=== PATIENT | female | born 1985 | race American Indian/Alaskan Native ===

== ENCOUNTER 2023-10-07 05:55 | Day surgery (SDC) | payer OTHER ==
[~2023-10-07] VITALS: Ht 170.2 cm; Wt 101.6 kg
[2023-10-07] MEDS ORDERED: CEFAZOLIN SOD 2 GM in D5W 50 ML IV ONE (07:00)
[2023-10-07] MEDS ORDERED: PROPOFOL 200MG/ 20ML VIAL (DIPRIVAN) IV ONE (07:30)
[2023-10-07] MEDS ORDERED: ROCURONIUM BROMIDE 10 MG/ML (ZEMURON) ONE (07:30)
[2023-10-07] MEDS ORDERED: LIDOCAINE/EPI 1% 1:100000 20 ML VIAL ONE (07:30)
[2023-10-07] MEDS ORDERED: SUCCINYLCHOLINE CHLORIDE 20 MG/ML(QUELICIN) ONE (07:30)
[2023-10-07] MEDS ORDERED: SEVOFLURANE 15 MIN GAS INH ONE (07:30)
[2023-10-07] MEDS ORDERED: DEXAMETHASONE SOD PHOSPHATE 4 MG/ML VIAL ONE (07:30)
[2023-10-07] MEDS ORDERED: ePHEDrine sulfate 50 MG/ML VIAL ONE (07:30)
[2023-10-07] MEDS ORDERED: GLYCOPYRROLATE 0.2 MG/ML VIAL ONE (07:30)
[2023-10-07] MEDS ORDERED: MIDAZOLAM HCL 2 MG/2 ML VIAL (VERSED) ONE (07:31)
[2023-10-07] MEDS ORDERED: HYDROmorphone 2 MG/ML VIAL ONE (07:32)
[2023-10-07 07:45] VITALS: O2SAT 99
[2023-10-07] MEDS ORDERED: IBUP-1969 PO (08:50)
[2023-10-07] MEDS ORDERED: TRAM50TA2 PO (08:52)
[2023-10-07] MEDS ORDERED: METOCLOPRAMIDE HCL 10 MG/2 ML VIAL IVP PRN (09:00)
[2023-10-07] MEDS ORDERED: ONDANSETRON HCL 4 MG/2 ML VIAL IVP PRN ×2 (09:00)
[2023-10-07] MEDS ORDERED: MORPHINE 4 MG INJ. 4 MG/ML VIAL IVP PRN ×2 (09:00)
[2023-10-07] MEDS ORDERED: traMADol HCL HCL 50 MG TABLET (ULTRAM) PO PRN (09:00)
[2023-10-07] MEDS ORDERED: HYDROmorphone 1 MG/ML INJ. CARTRIDGE IVP PRN (09:00)
[2023-10-07] MEDS ORDERED: HYDROcodone/ACETAMIN 5-325 MG TAB (NORCO/ VICODIN) PO PRN (09:00)
[2023-10-07] MEDS ORDERED: OXYCODONE/ACETAMINOPHEN 5-325 TABLET PO PRN (09:00)
[2023-10-07] MEDS ORDERED: IBUPROFEN 600 MG TABLET PO PRN (09:00)
[2023-10-07] MEDS: ONDANSETRON HCL 4 MG/2 ML VIAL ONE (10:40)
[2023-10-07 14:47] VITALS: BP_SYST 108; PULSE 90; RESP 16
== END 2023-10-07 11:06 | disposition home or self-care (01) ==
LOC: SMU 05:55 → SDS 05:55
PROVIDERS: ATTEND Specialist
DX: N95.2 Postmenopausal atrophic vaginitis (principal); C50.912 Malignant neoplasm of unspecified site of left female breast; Z17.0 Estrogen receptor positive status [ER+]; E66.01 Morbid (severe) obesity due to excess calories; J45.909 Unspecified asthma, uncomplicated; Z68.36 Body mass index [BMI] 36.0-36.9, adult; Z79.899 Other long term (current) drug therapy
CPT/HCPCS: 87081; 58670; 88305; J0690; J1100; J3490; J3465; J2405; J2704; J0330; J1170; J7060; C1727